=== PATIENT | female | born 1950 | race African-American/Black ===

== ENCOUNTER 2017-07-22 07:06 | Inpatient (IN) | payer OTHER ==
[~2017-07-22] VITALS: Ht 162.6 cm; Wt 5.0 kg
[~2017-07-22 07:06] MED LIST: ASA81 MG; CELEBREX200MG PO; FUROSEMIDE20 MG; GABAPENTIN100 MG; GLIPIZIDE2.5 MG/BOT; LOSARTAN POTAS100 MG; PNEU16DI2; TIROSINT100 MCG
[2017-07-25] MEDS ORDERED: LIPITOR20 MG PO (10:16)
[2017-07-25] MEDS ORDERED: NEURONTIN300 MG PO (10:16)
[2017-07-25] MEDS ORDERED: ASA-EC81 MG PO (10:16)
[2017-07-25] MEDS ORDERED: LOSARTAN-HCTZ1 EAC2 PO (10:16)
== END 2017-07-25 12:38 | disposition home or self-care (01) | DRG 305 ==
LOC: ER 07:06 → MEDJ 19:18
PROC: B030ZZZ Magnetic Resonance Imaging (MRI) of Brain (ICD-10-PCS; principal; 2017-07-22)
PROC: B345ZZZ Ultrasonography of Bilateral Common Carotid Arteries (ICD-10-PCS; 2017-07-22)
PROC: B348ZZZ Ultrasonography of Bilateral Internal Carotid Arteries (ICD-10-PCS; 2017-07-22)
PROC: BW28ZZZ Computerized Tomography (CT Scan) of Head (ICD-10-PCS; 2017-07-22)
PROC: B246ZZZ Ultrasonography of Right and Left Heart (ICD-10-PCS; 2017-07-22)
DX: I16.1 Hypertensive emergency (principal); N39.0 Urinary tract infection, site not specified; E03.8 Other specified hypothyroidism; E11.9 Type 2 diabetes mellitus without complications; E86.0 Dehydration
CPT/HCPCS: 70551

== ENCOUNTER 2017-09-13 11:30 | Outpatient (CLI) | payer OTHER ==
[~2017-09-13 11:30] MED LIST changes: +ASA-EC81 MG PO; +ASA81 MG PO; +GABAPENTIN100 MG PO; +GLIPIZIDE ER2.5 MG PO; +HYZAAR 100-12.1 EACH PO; +LIPITOR20 MG PO; +LOSARTAN-HCTZ1 EAC2 PO; +NEURONTIN300 MG PO; +SYNTHROID100 MCG PO
== END 2017-09-13 11:41 | disposition home or self-care (01) ==
LOC: LAB 11:30
DX: I10 Essential (primary) hypertension (principal); E11.8 Type 2 diabetes mellitus with unspecified complications; E03.8 Other specified hypothyroidism